=== PATIENT | male | born 1980 | race Caucasian/White ===

== ENCOUNTER 2020-12-25 09:51 | Emergency (ER) | payer BC, MEDICAID ==
[~2020-12-25] VITALS: Ht 180.3 cm; Wt 81.6 kg
[~2020-12-25 09:51] MED LIST: CLON0.5T4 PO; ESCI20TA PO; GABA-331 PO; QUET300T2 PO
[2020-12-25 10:20] VITALS: BP_SYST 128
[2020-12-25 11:15] LABS: BASOPHILS # (AUTO) 0.1 K/uL (0.0-0.2); BASOPHILS % (AUTO) 1.1 % (0.0-2.0); EOSINOPHILS # (AUTO) 0.2 K/uL (0.0-0.4); EOSINOPHILS % (AUTO) 4.6 % (0.0-4.0); HEMATOCRIT 35.9 % (36-54); HEMOGLOBIN 11.9 g/dL (14.0-18.0); LYMPHOCYTES # (AUTO) 1.1 K/uL (1.0-5.5); LYMPHOCYTES % (AUTO) 21.6 % (20.5-51.5); MEAN CORPUSCULAR HEMOGLOBIN 31 pg (27-31); MEAN CORPUSCULAR HGB CONC 33 % (32-36); MEAN CORPUSCULAR VOLUME 94 fL (79.0-98.0); MONOCYTES # (AUTO) 0.5 K/uL (0.0-1.0); MONOCYTES % (AUTO) 9.3 % (1.7-9.3); NEUTROPHILS # (AUTO) 3.3 K/uL (1.8-7.7); NEUTROPHILS % (AUTO) 63.4 % (40.0-70.0); PLATELET COUNT (AUTO) 278 K/uL (130-430); RED BLOOD CELL COUNT(AUTO) 3.81 MIL/uL (4.2-6.2); RED CELL DISTRIBUTION WIDTH 15.5 % (9.0-15.0); WHITE BLOOD COUNT (AUTO) 5.2 K/uL (4.8-10.8)
[2020-12-25 11:21] LABS: PROTHROMBIN TIME 10.9 SECS (9.5-12.5)
[2020-12-25 11:22] LABS: CALCIUM 9.7 mg/dL (8.4-11.0); CREATININE 1.15 mg/dL (0.55-1.30); POTASSIUM 3.8 mmol/L (3.5-5.1)
[2020-12-25 11:30] LABS: ALBUMIN 3.5 g/dL (3.4-4.8); TOTAL BILIRUBIN 0.5 mg/dL (0.0-1.0)
[2020-12-25] MEDS ORDERED: IBUP-1971 PO (12:20)
[2020-12-25] MEDS ORDERED: TRAM50TA2 PO (12:20)
[2020-12-25 12:37] VITALS: BP_SYST 133
[2020-12-25 12:45] LABS: ERYTHROCYTE SEDIMENTATION RATE 34 MM/HR (0-15)
== END 2020-12-25 12:38 | disposition home or self-care (01) ==
LOC: SED 09:51
DX: G62.9 Polyneuropathy, unspecified (principal); F32.9 Major depressive disorder, single episode, unspecified; F41.9 Anxiety disorder, unspecified; Z79.899 Other long term (current) drug therapy
CPT/HCPCS: 36415; 80053; 82550; 85025; 85610-TC; 85651-TC; 85730-TC; 86140; 93971; 99284